=== PATIENT | female | born 1995 | race Caucasian/White ===

== ENCOUNTER → 2018-12-14 | Outpatient (CLI) | payer OTHER | END | disposition home or self-care (01) | LOC: US 11:30 | DX: Z34.91 Encounter for supervision of normal pregnancy, unspecified, first trimester (principal); Z3A.01 Less than 8 weeks gestation of pregnancy ==

== ENCOUNTER → 2018-12-21 | Outpatient (CLI) | payer OTHER | END | disposition home or self-care (01) | LOC: US 12-20 15:00 | DX: O20.0 Threatened abortion (principal); Z3A.01 Less than 8 weeks gestation of pregnancy ==

== ENCOUNTER → 2019-06-08 | Outpatient (CLI) | payer OTHER | END | disposition home or self-care (01) | LOC: US 16:00 | DX: Z34.81 Encounter for supervision of other normal pregnancy, first trimester (principal); Z3A.11 11 weeks gestation of pregnancy ==

== ENCOUNTER → 2019-08-06 | Outpatient (CLI) | payer OTHER | END | disposition home or self-care (01) | LOC: US 12:45 | DX: O32.1XX0 Maternal care for breech presentation, not applicable or unspecified (principal); Z3A.20 20 weeks gestation of pregnancy ==

== ENCOUNTER → 2019-09-28 | Outpatient (CLI) | payer OTHER ==
[2019-09-28 09:24] LABS: BASO # 0.1 10*3/uL (0.0-0.1); BASO % 0.4 % (0.0-1.0); EOS # 0.2 10*3/uL (0.0-0.4); EOS % 1.3 % (1.0-4.0); LYMPH # 1.7 10*3/uL (1.3-4.4); MEAN CELL VOLUME 85.4 fl (81.0-99.0); MEAN CORPUSCULAR HGB CONC 32.9 g/dl (33.0-37.0); MEAN PLATELET VOLUME 9.6 fl (9.6-12.3); MONO # 0.7 10*3/uL (0.1-1.0); MONO % 6.6 % (3.0-9.0); NEUT # 8.6 10*3/uL (2.3-7.9); NEUT % 76.3 % (47.0-73.0); PLATELET COUNT AUTOMATED 263 10*3/uL (130-400); RED CELL DISTRI WIDTH 12.7 % (0-14.5); WHITE BLOOD COUNT 11.2 10*3/uL (4.8-10.8)
== END | disposition home or self-care (01) ==
LOC: LAB 07:59 → US 09:30
PROVIDERS: Obstetrics & Gynecology
DX: Z34.82 Encounter for supervision of other normal pregnancy, second trimester (principal); Z3A.27 27 weeks gestation of pregnancy

== ENCOUNTER → 2019-10-29 | Outpatient (CLI) | payer OTHER | END | disposition home or self-care (01) | LOC: US 11:30 | DX: Z34.83 Encounter for supervision of other normal pregnancy, third trimester (principal); Z3A.32 32 weeks gestation of pregnancy ==

== ENCOUNTER → 2019-12-17 | Outpatient (CLI) | payer OTHER | END | disposition home or self-care (01) | LOC: US 14:50 | PROVIDERS: ATTEND Obstetrics & Gynecology | DX: Z34.83 Encounter for supervision of other normal pregnancy, third trimester (principal); Z3A.38 38 weeks gestation of pregnancy ==

== ENCOUNTER → 2020-09-25 | Outpatient (CLI) | payer OTHER | END | disposition home or self-care (01) | LOC: US 10:56 | PROVIDERS: ATTEND Nurse Practitioner Primary Care | DX: R14.0 Abdominal distension (gaseous) (principal); R11.0 Nausea ==

== ENCOUNTER → 2021-05-12 | Outpatient (CLI) | payer OTHER | END | disposition home or self-care (01) | LOC: RAD 16:04 | PROVIDERS: ATTEND Nurse Practitioner Primary Care | DX: R07.9 Chest pain, unspecified (principal) ==

== ENCOUNTER 2022-01-05 15:59 | Emergency (ER) | payer OTHER ==
[~2022-01-05] VITALS: Ht 170.1 cm; Wt 95.3 kg
== END 2022-01-05 19:17 | disposition home or self-care (01) ==
LOC: ED 15:59
DX: R07.0 Pain in throat (principal)

== ENCOUNTER → 2023-12-12 | Outpatient (CLI) | payer OTHER | END | disposition home or self-care (01) | LOC: LAB 10:44 | PROVIDERS: ATTEND Obstetrics & Gynecology | DX: N64.3 Galactorrhea not associated with childbirth (principal) ==